=== PATIENT | female | born 1990 | race Caucasian/White ===

== ENCOUNTER 2016-11-22 07:00 | Day surgery (SDC) | payer OTHER, BC ==
[~2016-11-22 07:00] MED LIST: ACETAMINOPHEN 500 MG TABLET PO PRN; HYDROmorphone HCL 2 MG/ML VIAL IV PRN; MAG HYDROX/ALUMINUM HYD/SIMETH 30 ML UDC PO PRN; MAGNESIUM HYDROXIDE 30 ML UDC PO PRN; ONDANSETRON HCL/PF 2 MG/ML VIAL IV PRN; PROMETHAZINE HCL 25 MG in DEXTROSE 5 % IN WATER 50 ML IV PRN; RINGERS SOLUTION,LACTATED 1,000 ML IV PRN; ZOLPIDEM TARTRATE 5 MG TABLET PO PRN; ceFAZolin SODIUM 1 GM VIAL IV PRN; diphenhydrAMINE HCL 50 MG/ML VIAL IV PRN; oxyCODONE HCL/ACETAMINOPHEN 1 TAB TABLET PO PRN
[2016-11-22] MEDS ORDERED: RINGERS SOLUTION,LACTATED 1,000 ML IV ONE ×3 (07:30→10:59)
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
[2016-11-22 12:13] VITALS: BP 127/70
[2016-11-22] MEDS ORDERED: SENNOSIDES/DOCUSATE SODIUM 1 TAB TABLET PO SCH (21:00)
== END 2016-11-22 07:01 | disposition home or self-care (01) ==
LOC: AMB 07:00
PROVIDERS: ATTEND Orthopaedic Surgery
PROC: 0PS904Z Reposition Right Clavicle with Internal Fixation Device, Open Approach (ICD-10-PCS; principal; 2016-11-22 08:00)
DX: S42.021A Displaced fracture of shaft of right clavicle, initial encounter for closed fracture (principal); F17.200 Nicotine dependence, unspecified, uncomplicated; Z68.31 Body mass index [BMI] 31.0-31.9, adult

== ENCOUNTER 2017-02-07 06:56 | Day surgery (SDC) | payer OTHER, BC ==
--- OUTSIDE RECORDS SUMMARY | 2017-02-07 07:00 | XMS REPORT | Continuity of Care Document ---
:1990 Author Organization [facility] ([facility]) Address [place] [address] Phone [phone] Care Team Providers Name Role Phone Provider, No-Primary Care Primary Care Provider Unavailable Source Comments This disclosure is being made pursuant to the Care Everywhere program, applicable federal and state laws, and may not contain all informaitonavailable regarding this patient.[facility] ([facility]) Active Allergies and Adverse Reactions No Known Allergies Current Medications Prescription Sig. Disp. Refills Start Date End Date Status pseudoephedrine 120 mg XR Take 1 tablet 10 tablet 0 01/07/2016 Active tablet (120 mg total) by mouth 2 times daily as needed. Active Problems Not on file Social History Tobacco Use Types Packs/Day Years Used Date Current Every Day Smoker Cigarettes 0.25 1 Smokeless Tobacco: Never Used Alcohol Use Drinks/Week oz/Week Comments Yes Last Filed Vital Signs Vital Sign Reading Time Taken Blood Pressure 109/77 01/07/2016 10:00 AM DATA MANAGEMENT Pulse 85 01/07/2016 10:00 AM DATA MANAGEMENT Temperature 36 C (96.8 F) 01/07/2016 10:00 AM DATA MANAGEMENT Respiratory Rate 16 01/07/2016 10:00 AM DATA MANAGEMENT Height 1.676 m (5' 6") 05/18/2013 9:49 AM CDT Weight 88.179 kg (194 lb 6.4 oz) 01/07/2016 10:00 AM DATA MANAGEMENT Body Mass Index 31.39 01/07/2016 10:00 AM DATA MANAGEMENT Oxygen Saturation 99% 04/19/2013 2:29 PM CDT Plan of Care Health Maintenance Due Date Last Done Comments Hepatitis B Vaccine (1 of 3 - Primary Series) 1990 HPV Vaccine (1 of 3 - Female/Unknown 3 Dose Series) 2002 Tdap Vaccine 2002 Cervical Cancer Screening 2009 Lipid Disorder Screening 2009 MMR Vaccine 2009 Td Vaccine 2009 Varicella Vaccine (1 of 2 - Adult - No Evidence of 2009 Immunity) Pneumococcal Vaccine (1 of 1 - PPSV23) 2010 Influenza Vaccine: Seasonal (#1) 06/11/2016 Results from Last 3 Months Not on file
[2017-02-07] MEDS ORDERED: RINGERS SOLUTION,LACTATED 1,000 ML IV ONE (07:27)
[2017-02-07] MEDS ORDERED: SCOPOLAMINE HYDROBROMIDE 1.5 MG PATC TD ONE (07:28)
[2017-02-07] MEDS ORDERED: BUPIVACAINE HCL/EPINEPHRINE 50 ML VIAL IJ ONE ×2 (08:19)
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
[2017-02-07 10:39] VITALS: BP 124/67
[2017-02-07] MEDS ORDERED: SENNOSIDES/DOCUSATE SODIUM 1 TAB TABLET PO SCH (21:00)
== END 2017-02-07 06:57 | disposition home or self-care (01) ==
LOC: AMB 06:56
PROVIDERS: ATTEND Orthopaedic Surgery
PROC: 0PP904Z Removal of Internal Fixation Device from Right Clavicle, Open Approach (ICD-10-PCS; principal; 2017-02-07 08:00)
DX: T84.89XA Other specified complication of internal orthopedic prosthetic devices, implants and grafts, initial encounter (principal); F17.200 Nicotine dependence, unspecified, uncomplicated; Z68.30 Body mass index [BMI] 30.0-30.9, adult